=== PATIENT | female | born 1965 | race Caucasian/White ===

== ENCOUNTER 2017-06-14 16:29 | Emergency (ER) | payer OTHER ==
[2017-06-14 16:42] VITALS: BP 151/79; PULSE 86; TEMP 98.4; BMI 35.9
--- NOTE | 2017-06-14 16:50 | PDOC ---
History of Present Illness - General History Source: Patient Exam Limitations: No Limitations - History of Present Illness Initial Comments: 06/14/17 16:50 51 year old female, with significant past medical history of hypothyroidism, who presents to the emergency room with an avulsion on her right thumb s/p slicing her finger on a mandolin approximately 45 minutes ago. She initially ran the injury under cold water and applied pressure. The avulsion is actively bleeding. She is unsure when her last tetanus shot was. Denies numbness and tingling. Denies lightheadedness. Denies any other injuries. Allergies: NKA <Lesley Sanchez - Last Filed: 06/14/17 17:01> <Florian Segovia - Last Filed: 06/14/17 17:06> - General Chief Complaint: Laceration Stated Complaint: LACERATION TO RIGHT THUMB Time Seen by Provider: 06/14/17 16:44 Past History <Lesley Sanchez - Last Filed: 06/14/17 17:01> - Past Medical History COPD: No Thyroid Disease: Yes - Suicide/Smoking/Psychosocial Hx Smoking History: Never smoked Information on smoking cessation initiated: No Hx Alcohol Use: No Drug/Substance Use Hx: No Substance Use Type: Alcohol <Florian Segovia - Last Filed: 06/14/17 17:06> - Past Medical History Allergies/Adverse Reactions: Allergies Allergy/AdvReac Type Severity Reaction Status Date / Time No Known Allergies Allergy Unverified 06/14/17 16:31 Home Medications: Ambulatory Orders Levothyroxine [Synthroid -] 150 mcg PO DAILY 06/14/17 Review of Systems - Review of Systems Comments:: 06/14/17 16:50 CONSTITUTIONAL: Absent: fever, chills, diaphoresis, generalized weakness, malaise, loss of appetite HEENT: Absent: rhinorrhea, nasal congestion, throat pain, throat swelling, difficulty swallowing, mouth swelling, ear pain, eye pain, visual Changes CARDIOVASCULAR: Absent: chest pain, syncope, palpitations, irregular heart rate, lightheadedness , peripheral edema SKIN: present: avulsion on the right thumb Absent: rash, itching, pallor HEMATOLOGIC/IMMUNOLOGIC: Absent: easy bleeding, easy bruising, lymphadenopathy, frequent infections <Lesley Sanchez - Last Filed: 06/14/17 17:01> *Physical Exam - Vital Signs Last Vital Signs Temp Pulse Resp BP Pulse Ox 98.4 F 86 18 151/79 99 06/14/17 16:30 06/14/17 16:30 06/14/17 16:30 06/14/17 16:30 06/14/17 16:30 - Physical Exam Comments: 06/14/17 17:01 Examination confined to the right hand: There is a 5mm by 2mm skin avulsion oriented longitudinally beginning just distal to the IP joint and extending to the distal pulp. No nail involvement. No deep penetration. No deep structures exposed. Good capillary refill. No sensory deficit to the fingertip <Lesley Sanchez - Last Filed: 06/14/17 17:01> - Vital Signs Last Vital Signs Temp Pulse Resp BP Pulse Ox 98.4 F 86 18 151/79 99 06/14/17 16:30 06/14/17 16:30 06/14/17 16:30 06/14/17 16:30 06/14/17 16:30 <Florian Segovia - Last Filed: 06/14/17 17:06> Medical Decision Making - Medical Decision Making 06/14/17 17:04 Patient with a superficial skin avulsion of the thumb, no deep penetration and no neuro deficits. Procedure note: Repair Scrubbed with normal saline, bleeding controlled with pressure. Bacitracin applied and loose Steri-Strips for edge approximation. 2 x 2 and tube gauze. Wound care instructions. Follow-up as directed. <Florian Segovia - Last Filed: 06/14/17 17:06> *DC/Admit/Observation/Transfer - Attestations Scribe Attestion: 06/14/17 16:51 Documentation prepared by EILEEN Joiner, acting as medical staff coordinator for Florian Segovia MD. <Lesley Sanchez - Last Filed: 06/14/17 17:01> - Discharge Dispostion Admit: No <Florian Segovia - Last Filed: 06/14/17 17:06> Diagnosis at time of Disposition: Avulsion, skin - Discharge Dispostion Disposition: HOME Condition at time of disposition: Improved - Patient Instructions Printed Discharge Instructions: DI for Avulsion Laceration (Not Requiring Sutures) Additional Instructions: Rest and elevate 24 hours. Keep clean and dry. Inspect the wound on Monday and redressed with bacitracin and a bandage. If there is any sign of infection, return for recheck. Otherwise keep dressing with bacitracin ointment and covering with a Band-Aid until fully healed.
[2017-06-14] MEDS ORDERED: DIPHTH,PERTUSS(ACELL),TET 0.5 ML DISP.SYRIN IM ONE (17:01)
== END 2017-06-14 17:13 | disposition home or self-care (01) ==
LOC: FER 16:29
PROC: 3E0234Z Introduction of Serum, Toxoid and Vaccine into Muscle, Percutaneous Approach (ICD-10-PCS; principal; 2017-06-14)
DX: S61.011A Laceration without foreign body of right thumb without damage to nail, initial encounter (principal); W27.8XXA Contact with other nonpowered hand tool, initial encounter; Y93.G1 Activity, food preparation and clean up; Y92.000 Kitchen of unspecified non-institutional (private) residence as the place of occurrence of the external cause; E07.9 Disorder of thyroid, unspecified
CPT/HCPCS: 90715; 99282-25